=== PATIENT | male | born 1980 | race Caucasian/White ===

== ENCOUNTER 2021-10-29 16:18 | Emergency (ER) | payer BC ==
--- OUTSIDE RECORDS SUMMARY | 2021-10-29 16:22 | XMS REPORT | Continuity of Care Document ---
:1980 Author Organization [facility] t Address [address] [place] [id number] Care Team Providers Name Role Phone LACIE SOOD Attending Clinician Unavailable [id number] Attending Clinician Unavailable Payers Payer Name Policy Type Policy Number Effective Date Expiration Date S serafin BCBS 2 [id number] 2016 00:00:00 Problems This patient has no known problems. Allergies, Adverse Reactions, Alerts This patient has no known allergies or adverse reactions. Medications This patient has no known medications. Procedures This patient has no known procedures. Encounters Start End Encounter Admission Attending Care Care Encounter Source Date/Time Date/Time Type Type Clinicians Facility Department ID 2021 2021 Outpatient FRANCIS SOOD [id number] Francis 00:00:00 00:00:00 GALILEA whaley 2021-05-29 2021-05-29 Outpatient FRANCIS SOOD [id number] Francis 00:00:00 00:00:00 GALILEA whaley 2021-05-28 2021-05-28 Outpatient FRANCIS SOOD [id number] Francis 00:00:00 00:00:00 GALILEA whaley 2021-05-12 2021-05-12 Outpatient FRANCIS SOOD [id number] Francis 00:00:00 00:00:00 GALILEA whaley 2021-04-24 2021-04-24 Outpatient FRANCIS SOOD [id number] Francis 00:00:00 00:00:00 GALILEA Sesarmadol jovana 2021-04-23 2021-04-23 Outpatient FRANCIS SOOD [id number] Francis 00:00:00 00:00:00 GALILEA whaley 2021-04-21 2021-04-21 Outpatient LAB90 FRANCIS BLANCO [id number] Francis 10:15:00 10:15:00 Sandrine whaley 2021-04-21 2021-04-21 Outpatient FRANCIS SOOD [id number] Francis 09:30:00 09:30:00 GALILEA whaley Results This patient has no known results.
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
[2021-10-29] MEDS ORDERED: MORPHINE 4 MG/ML SYR ONE ×3 (18:05→19:56)
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
[2021-10-29 18:33] LABS: Absolute Lymphocytes (CBC) 1.2 K/uL (0.7-4.9); Lymphocytes % 8.6 % (15.3-44.8); MPV 8.5 fL (7.6-11.3); RBC Red Blood Cell Count 4.49 M/uL (4.33-5.43)
[2021-10-29 18:45] LABS: BUN Blood Urea Nitrogen 11 mg/dL (7-18); Bicarbonate 27 mmol/L (21-32); Glucose Level 97 mg/dL (74-106); Potassium 3.8 mmol/L (3.5-5.1); Sodium Level 139 mmol/L (136-145)
[2021-10-29] MEDS ORDERED: ONDANSETRON 4 MG/2 ML VIAL ONE (18:54)
[2021-10-29 18:57] LABS: Troponin High Sensitivity < 3.00 pg/mL (<58.9)
[2021-10-29 21:11] VITALS: TEMP 98.5
[2021-10-29 21:16] VITALS: BP 116/69; O2SAT 100
--- NOTE | 2021-10-30 13:11 | EKG ---
Test Date: 2021-10-29 Test Time: 17:33:23 Liquid Fertilizer Servicer: ROSA MEASUREMENT RESULTS: Intervals: Rate: 73 NE: 178 QRSD: 80 QT: 378 QTc: 416 Laura: P: 49 NE: 178 QRS: 36 T: -1 INTERPRETIVE STATEMENTS: Normal sinus rhythm Cannot rule out Inferior infarct, age undetermined Possible Anterior infarct, age undetermined Abnormal ECG No previous ECG available for comparison Electronically Signed On 10-30-21 13:08:10 [employer] by Андрей Murrieta
== END 2021-10-29 20:58 | disposition short-term general hospital (02) ==
LOC: ER 16:18
DX: S22.20XA Unspecified fracture of sternum, initial encounter for closed fracture (principal); V59.40XA Driver of pick-up truck or van injured in collision with unspecified motor vehicles in traffic accident, initial encounter; Z88.0 Allergy status to penicillin; Z88.2 Allergy status to sulfonamides; Z20.822 Contact with and (suspected) exposure to COVID-19
CPT/HCPCS: 93005; 85025; 80048; 36415; 86900; 86850; 86901; 84484; 70450; 72125; 71260; 96375; 96374; 99285; U0003; Q9967; J2405

== ENCOUNTER → 2023-09-11 | Emergency (ER) | payer BC ==
[~2023-09-11] MED LIST: LIDOCAINE 1% 20 ML MDV ONE
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
[2023-09-11 23:13] VITALS: BP 131/80; TEMP 98; O2SAT 97
== END ==
LOC: ER 19:51
PROC: 0HQFXZZ Repair Right Hand Skin, External Approach (ICD-10-PCS; principal; 2023-09-11)
DX: S61.011A Laceration without foreign body of right thumb without damage to nail, initial encounter (principal); Z88.0 Allergy status to penicillin; Z88.2 Allergy status to sulfonamides
CPT/HCPCS: 99283; 12002; J2001